=== PATIENT | female | born 1995 | race African-American/Black ===

== ENCOUNTER 2016-11-24 20:21 | Observation (INO) | payer MEDICAID ==
[2016-11-24 22:41] LABS: Urine Bilirubin Negative (Negative); Urine Blood Negative /uL (Negative); Urine Color Yellow (Yellow); Urine Glucose Normal (Normal); Urine Ketone Negative (Negative); Urine Mucus FEW (None Seen); Urine Nitrite POSITIVE (Negative); Urine RBC 2 /hpf (0 - 4); Urine Squamous Epithelial Cell MOD /hpf (<5)
== END 2016-11-24 23:34 | disposition home or self-care (01) | DRG 566 ==
LOC: LDRP 20:21
PROVIDERS: ADMIT Specialist; ATTEND Specialist
DX: O36.8130 Decreased fetal movements, third trimester, not applicable or unspecified (principal); O62.9 Abnormality of forces of labor, unspecified; Z3A.39 39 weeks gestation of pregnancy
CPT/HCPCS: 36415; 59025; 76805; 76818; 80307; 81001; 81002; 86592; 86703; 86762; 87081; 87340; G0378; 96365; 96366

== ENCOUNTER 2016-11-28 21:08 | Observation (INO) | payer MEDICAID | END 2016-11-28 22:32 | disposition home or self-care (01) | DRG 565 | LOC: LDRP 21:08 | PROVIDERS: ADMIT Specialist; ATTEND Specialist | DX: O47.1 False labor at or after 37 completed weeks of gestation (principal); O62.9 Abnormality of forces of labor, unspecified; Z3A.39 39 weeks gestation of pregnancy | CPT/HCPCS: 59025; 81002; 87081; G0378 ==

== ENCOUNTER 2017-06-13 09:26 | Emergency (ER) | payer MEDICAID ==
[~2017-06-13] VITALS: Ht 157.5 cm; Wt 63.5 kg
[2017-06-13 09:52] LABS: Basophils # (auto) 0 uL; Basophils % (auto) 0.5 % (0.0-2.0); Eosinophils # (auto) 0.1 uL; Eosinophils % (auto) 2.1 % (0.0-7.0); Hematocrit 37.3 % (36.0-46.0); Hemoglobin 12.5 g/dL (12.2-16.2); Lymphocytes # (auto) 0.9 uL; Lymphocytes % (auto) 14.7 % (10.0-50.0); Mean Corpuscular Hgb Conc. 33.6 g/dL (32.0-36.0); Mean Corpuscular Volume 86.4 fL (80.0-100.0); Mean Platelet Volume 7.9 fL (6.9-10.8); Monocytes # (auto) 0.5 uL; Monocytes % (auto) 8.5 % (0.0-12.0); Neutrophils # (auto) 4.7 uL; Neutrophils % (auto) 74.2 % (37.0-80.0); Platelet Count (auto) 281 10^3/uL (140-450); Red Cell Distribution Width 15.3 % (11.8-14.3); White Blood Cell 6.4 10^3/uL (4.4-10.8)
[2017-06-13 10:14] VITALS: BP 110/51
[2017-06-13 10:14] LABS: Albumin 3.5 g/dL (3.4-5.0); BUN/Creatinine Ratio 12.9; Bilirubin, Total 0.2 mg/dL (0.2-1.0); Calcium 8.2 mg/dL (8.5-10.1); Potassium 3.6 mmol/L (3.5-5.1); Total Protein 8.3 g/dL (6.4-8.2)
[2017-06-13] MEDS ORDERED: ONDANSETRON ODT 4 MG TAB PO ONE (10:15)
[2017-06-13 10:29] LABS: Urine Bilirubin Negative (Negative); Urine Blood Negative /uL (Negative); Urine Color Yellow (Yellow); Urine Glucose Normal (Normal); Urine Ketone Negative (Negative); Urine Mucus MODERATE (None Seen); Urine Nitrite Negative (Negative); Urine RBC 2 /hpf (0 - 4); Urine Squamous Epithelial Cell MOD /hpf (<5)
== END 2017-06-13 11:01 | disposition home or self-care (01) ==
LOC: ER 09:26
DX: S09.90XA Unspecified injury of head, initial encounter (principal); N39.0 Urinary tract infection, site not specified; Z82.49 Family history of ischemic heart disease and other diseases of the circulatory system; V49.59XA Passenger injured in collision with other motor vehicles in traffic accident, initial encounter; Y93.89 Activity, other specified; Y92.410 Unspecified street and highway as the place of occurrence of the external cause; Y99.8 Other external cause status
CPT/HCPCS: 36415; 70450; 80053; 81001; 81025; 85025; 99285; Q0162

== ENCOUNTER 2021-10-22 15:33 | Emergency (ER) | payer MEDICAID ==
[~2021-10-22] VITALS: Ht 157.5 cm; Wt 84.8 kg
[2021-10-22] MEDS ORDERED: HYDROcodone-ACET 10/325MG TAB PO ONE (18:00)
[2021-10-22] MEDS ORDERED: TRAM-297 PO (19:10)
[2021-10-22 20:20] VITALS: BP 126/76
== END 2021-10-22 20:33 | disposition home or self-care (01) ==
LOC: ER 15:33
DX: S92.312A Displaced fracture of first metatarsal bone, left foot, initial encounter for closed fracture (principal); Z86.2 Personal history of diseases of the blood and blood-forming organs and certain disorders involving the immune mechanism; W10.9XXA Fall (on) (from) unspecified stairs and steps, initial encounter; Y93.89 Activity, other specified; Y92.89 Other specified places as the place of occurrence of the external cause; Y99.8 Other external cause status
CPT/HCPCS: 29515; 73610; 73630

== ENCOUNTER 2021-12-12 09:16 | Emergency (ER) | payer MEDICAID ==
[~2021-12-12] VITALS: Ht 157.5 cm; Wt 89.8 kg
[~2021-12-12 09:16] MED LIST: TRAM-297 PO
[2021-12-12 10:09] LABS: Urine Bacteria MOD /hpf (None Seen); Urine Blood 2+ /uL (Negative); Urine Mucus FEW (None Seen); Urine Specific Gravity 1.015 (1.001-1.035); Urine WBC 1079 /hpf (0 - 5); Urine WBC Clumps PRESENT /hpf (None Seen)
[2021-12-12 10:41] VITALS: BP 121/79
[2021-12-12] MEDS ORDERED: IBUPROFEN 800 MG TAB PO ONE (12:15)
[2021-12-12] MEDS ORDERED: cefTRIAXone SOD 1,000 MG VL IM ONE (12:15)
[2021-12-12] MEDS ORDERED: cefTRIAXone SOD 1,000 MG VL ONE (12:16)
[2021-12-12] MEDS ORDERED: IBUP800T27 PO (12:18)
[2021-12-12] MEDS ORDERED: SULF800T7 PO (12:18)
== END 2021-12-12 12:29 | disposition home or self-care (01) ==
LOC: ER 09:16
DX: N39.0 Urinary tract infection, site not specified (principal); Z32.02 Encounter for pregnancy test, result negative
CPT/HCPCS: 81001; 81025; 96372; 99283; J0696